=== PATIENT | male | born 1990 | race Caucasian/White ===

== ENCOUNTER 2017-06-01 11:46 | Emergency (ER) | payer SELFPAY ==
--- NOTE | 2017-06-01 12:04 | EDM.PDOC ---
ED HPI GENERAL MEDICAL PROBLEM - General Chief Complaint: Lower Extremity Injury/Pain Stated Complaint: SPRAIN LT KNEE Time Seen by Provider: 06/01/17 11:56 - History of Present Illness INITIAL COMMENTS - FREE TEXT/NARRATIVE: HISTORY AND PHYSICAL: History of present illness: Patient 27-year-old white male presents 1 day status post ankle/foot injury this is his left ankle and foot and occurred when he rolled it while at work yesterday he denies other trauma or concern Review of systems: As per history of present illness and below otherwise all systems reviewed and negative. Past medical history: As per history of present illness and as reviewed below otherwise noncontributory. Surgical history: As per history of present illness and as reviewed below otherwise noncontributory. Social history: No reported history of drug or alcohol abuse. Family history: As per history of present illness and as reviewed below otherwise noncontributory. Physical exam: HEENT: Atraumatic, normocephalic, pupils reactive, negative for conjunctival pallor or scleral icterus, mucous membranes moist, throat clear, neck supple, nontender, trachea midline. Lungs: Clear to auscultation, breath sounds equal bilaterally, chest nontender. Heart: S1S2, regular, negative for clicks, rubs, or JVD. Abdomen: Soft, nondistended, nontender. Negative for masses or hepatosplenomegaly. Negative for costovertebral tenderness. Pelvis: Stable nontender. Genitourinary: Deferred. Rectal: Deferred. Extremities: Patient has pain swelling and ecchymosis over the left lateral malleoli region and proximal left forefoot CMS neurovascular is unremarkable no crepitation Achilles tendon is intact Neuro: Awake, alert, oriented. Cranial nerves II through XII unremarkable. Cerebellum unremarkable. Motor and sensory unremarkable throughout. Exam nonfocal. Diagnostics: X-ray left foot/ankle Therapeutics: To Be determined Impression: #1 acute left ankle/foot injury Definitive disposition and diagnosis as appropriate pending reevaluation and review of above. - Related Data Allergies Allergy/AdvReac Type Severity Reaction Status Date / Time No Known Allergies Allergy Verified 06/01/17 12:02 Home Meds: Home Meds . [No Known Home Meds] 06/01/17 [History] Review of Systems - Review of Systems Review Of Systems: ROS reveals no pertinent complaints other than HPI. ED EXAM, GENERAL - Physical Exam Exam: See Below (See dictation) Course - Vital Signs Last Recorded V/S: Last Vital Signs Temp 36.3 C 06/01/17 12:00 Pulse 83 06/01/17 12:00 Resp 18 06/01/17 12:00 BP 144/82 H 06/01/17 12:00 Pulse Ox 97 06/01/17 12:00 - Orders/Labs/Meds Orders: Active Orders 24 hr Category Date Time Status Ankle Min 3V Lt [CR] Stat Exams 06/01/17 12:03 Ordered Foot 2V Lt [CR] Stat Exams 06/01/17 12:03 Ordered Departure - Departure Time of Disposition: 12:27 Disposition: Home, Self-Care 01 Condition: Good Clinical Impression: Ankle injury, Foot injury - Discharge Information Referrals: PCP,None [Primary Care Provider] - Forms: ED Department Discharge - My Orders Last 24 Hours: My Active Orders 06/01/17 12:03 Ankle Min 3V Lt [CR] Stat Foot 2V Lt [CR] Stat - Assessment/Plan Last 24 Hours: My Active Orders 06/01/17 12:03 Ankle Min 3V Lt [CR] Stat Foot 2V Lt [CR] Stat
--- NOTE | 2017-06-01 13:08 | CR ---
EXAMINATION: Left foot and left ankle HISTORY: Pain COMPARISON: None TECHNIQUE: 2 views of the left foot and 3 views of the left ankle FINDINGS: There is no acute osseous abnormality, dislocation, or fracture. There is mild generalized soft tissue swelling within the region of the left foot and ankle most prominent overlying the latera l malleolus. Ankle mortise and talar dome appear intact. IMPRESSION: No acute osseous abnormality demonstrated.
[2017-06-01 20:32] VITALS: BP 140/78
== END 2017-06-01 13:33 | disposition home or self-care (01) ==
LOC: MW.ED 11:46
DX: S90.02XA Contusion of left ankle, initial encounter (principal); S90.32XA Contusion of left foot, initial encounter; X50.9XXA Other and unspecified overexertion or strenuous movements or postures, initial encounter
CPT/HCPCS: 73610-26-LT; 73610-LT; 73620-26-LT; 73620-LT; 99282; 99283